=== PATIENT | male | born 1960 | race Two or more races ===

== ENCOUNTER 2024-05-07 21:05 | Emergency (ER) | payer OTHER ==
[~2024-05-07] VITALS: Ht 185.4 cm; Wt 130.8 kg
[2024-05-08 00:39] VITALS: BP 156/84; PULSE 94; RESP 18; TEMP 98.8; O2SAT 92
== END 2024-05-08 01:11 | disposition home or self-care (01) ==
LOC: ER 21:05
DX: I86.8 Varicose veins of other specified sites (principal)